=== PATIENT | female | born 1980 | race Caucasian/White ===

== ENCOUNTER → 2017-09-06 | Outpatient (CLI) | payer BC ==
--- NOTE | 2017-09-10 10:10 | MM ---
Reason for exam: screening (asymptomatic). Baseline mammogram. History: Taking hormonal contraceptives beginning at age 20. Physical Findings: Nurse did not find any significant physical abnormalities on exam. MG Screening Mammo w CAD Bilateral CC and MLO view(s) were taken. The breast tissue is heterogeneously dense. This may lower the sensitivity of mammography. Focal asymmetry right upper outer quadrant. Short term follow up recommended. These results were verbally communicated with the patient and result sheet given to the patient on 09/06/17. ASSESSMENT: Probably benign, BI-RAD 3 RECOMMENDATION: Follow-up diagnostic mammogram of the right breast in 6 months.
== END | disposition home or self-care (01) ==
LOC: RADMAMWWP 10:50
PROVIDERS: ATTEND Obstetrics & Gynecology
DX: Z12.31 Encounter for screening mammogram for malignant neoplasm of breast (principal)
CPT/HCPCS: 77067

== ENCOUNTER 2018-12-13 13:22 | Emergency (ER) | payer BC ==
[2018-12-13 14:34] LABS: Basophils % (A) 0 %; Eosinophils # (A) 0.1 k/uL (0-0.7); Eosinophils % (A) 1 %; HCT 37.7 % (34.0-46.0); HGB 12.9 gm/dL (11.4-16.0); Lymphocytes # (A) 2.4 k/uL (1.0-4.8); Lymphocytes % (A) 19 %; MCHC 34.2 g/dL (31.0-37.0); MCV 90.7 fL (80.0-100.0); Mean Platelet Volume 6.8; Monocytes # (A) 0.6 k/uL (0-1.0); Monocytes % (A) 5 %; Neutrophils # (A) 9.6 k/uL (1.3-7.7); Neutrophils % (A) 75 %; Platelet Count 346 k/uL (150-450); RBC 4.16 m/uL (3.80-5.40); RDW 14.2 % (11.5-15.5); WBC 12.9 k/uL (3.8-10.6)
[2018-12-13 14:42] LABS: INR 0.9 (<1.2); Partial Thromboplastin Time 23.5 sec (22.0-30.0); Prothrombin Time 9.6 sec (9.0-12.0)
[2018-12-13 14:50] LABS: ALT 19 U/L (9-52); AST 21 U/L (14-36); African American GFR (CKD) >90 (>60 ml/min/1.73 sqM); Albumin 4.1 g/dL (3.5-5.0); Alkaline Phosphatase 76 U/L (38-126); Anion Gap 9 mmol/L; Blood Urea Nitrogen 16 mg/dL (7-17); Calcium 9.4 mg/dL (8.4-10.2); Carbon Dioxide 25 mmol/L (22-30); Chloride 104 mmol/L (98-107); Glucose 95 mg/dL (74-99); Potassium 4.2 mmol/L (3.5-5.1); Sodium 138 mmol/L (137-145); Total Bilirubin 0.2 mg/dL (0.2-1.3); Total Protein 7.8 g/dL (6.3-8.2)
[2018-12-13 15:54] LABS: Amorphous Sediment,Urine Few /hpf; Appearance,Urine Cloudy (Clear); Bilirubin,Urine Negative (Negative); Blood,Urine Small (Negative); Color,Urine Yellow; Glucose,Urine (UA) Negative (Negative); Ketones,Urine Negative (Negative); Leukocyte Esterase,Urine Negative (Negative); Mucus,Urine Rare /hpf; Nitrite,Urine Negative (Negative); Protein,Urine Negative (Negative); RBC,Urine 2 /hpf (0-5); Specific Gravity,Urine 1.023 (1.001-1.035); Squamous Epithelial Cell,Urine 1 /hpf (0-4); Urobilinogen,Urine <2.0 mg/dL (<2.0)
[2018-12-13 16:26] LABS: HCG,Quantitative Serum >225000.0 mIU/mL
[2018-12-13 16:30] VITALS: BP 140/87; PULSE 87; RESP 16; TEMP 97.9
[2018-12-13] MEDS ORDERED: METOCLOPRAMIDE 10 MG TAB PO STA (16:49)
[2018-12-13] MEDS ORDERED: diphenhydrAMINE 50 MG CAP PO STA (16:50)
--- NOTE | 2018-12-13 17:42 | ED ---
Female Urogenital HPI - General Chief complaint: Vaginal Bleeding Stated complaint: 8 wks , Bleeding Time Seen by Provider: 12/13/18 13:52 Source: patient Mode of arrival: ambulatory Limitations: no limitations - History of Present Illness Initial comments: Patient is a 38-year-old female who is who presents emergency department with a positive test. States that for the past several week she's felt extremely nauseated with vomiting. She did take a test on Saturday and it was positive. Patient states her first ever last menstrual period was November 03. She has yet to see her [employer], Dr. Olivas. Appointment is January. She reports that as of 7:30 last night she did start having some vaginal bleeding. States that he consisted of thin bright red blood and some clots. Denies any abdominal pain. No blunt abdominal trauma. She denies any visual changes, headaches right upper quadrant pain. No lower extremity edema. Denies any she's with hypoxemia hypertension and previous . She has had 2 previous miscarriages. She denies any issues with her urination to include dysuria, hematuria or difficulty voiding. Denies any changes in her bowel movements and diarrhea, cuts patient, melanotic stools or hematochezia. No concern for sexually transmitted infections. There are no other alleviating, precipitating or modifying factors - Related Data Home Medications Medication Instructions Recorded Confirmed Ami-Wgpr-Zwqoq Acid 1 cap PO DAILY 02/11/15 12/13/18 [-U Capsule (formulary)] Previous Rx's Medication Instructions Recorded Doxylamine Succinate [Unisom] 25 mg PO HS #30 tablet 12/13/18 Metoclopramide [Reglan] 10 mg PO TID PRN #15 tab 12/13/18 Pnv No.95/Ferrous Fum/Folic AC 1 each PO DAILY #30 tablet 12/13/18 [ Multivitamin Tablet] Pyridoxine [Vitamin B-6] 50 mg PO HS #30 tablet 12/13/18 Allergies Allergy/AdvReac Type Severity Reaction Status Date / Time codeine AdvReac Unknown Verified 12/13/18 14:26 Review of Systems ROS Statement: Those systems with pertinent positive or pertinent negative responses have been documented in the HPI. ROS Other: All systems not noted in ROS Statement are negative. Past Medical History Past Medical History: No Reported History History of Any Multi-Drug Resistant Organisms: None Reported Past Surgical History: No Surgical Hx Reported Additional Past Surgical History / Comment(s): Mole removal Past Anesthesia/Blood Transfusion Reactions: No Reported Reaction Past Psychological History: No Psychological Hx Reported Smoking Status: Never smoker Past Drug Use History: None Reported - Past Family History Mother Family Medical History: No Reported History General Exam Limitations: no limitations Course Vital Signs 12/13/18 12/13/18 13:34 16:26 Temperature 98 F 97.9 F Pulse Rate 102 H 87 Respiratory 18 16 Rate Blood Pressure 129/84 140/87 O2 Sat by Pulse 99 99 Oximetry Medical Decision Making - Medical Decision Making Upon arrival the patient is placed into room 17. She is hooked up to continuous pulse ox and cardiac monitoring. I did recommend laboratory studies and a urinalysis. The patient was sent for an ultrasound of pelvis. Upon return the results are discussed the patient. She does have a mild leukocytosis of 12,900. The patient also has a beta Quant of 225,000. Some of the patient's pelvis demonstrates an intrauterine dated at 9 weeks, 0 days. There is a heart 170 bpm. Patient's blood is A+. Pelvic exam the patient which demonstrates only a trace amount of brown blood. Cervix is visualized, closed without lesions. At this time the patient will be discharged home. She needs to follow-up with Dr. Lehman as soon as possible. If she has any new or worsening symptoms she should return to the emergency room. Patient is written a prescription for vitamins, Reglan, B6 and Unisom. Instructions are provided. Patient was discharged home in stable condition - Lab Data Result diagrams: 12/13/18 14:20 12/13/18 14:20 Lab Results 12/13/18 12/13/18 12/13/18 Range/Units 14:20 14:20 14:20 WBC 12.9 H (3.8-10.6) k/uL RBC 4.16 (3.80-5.40) m/uL Hgb 12.9 (11.4-16.0) gm/dL Hct 37.7 (34.0-46.0) % MCV 90.7 (80.0-100.0) fL MCH 31.0 (25.0-35.0) pg MCHC 34.2 (31.0-37.0) g/dL RDW 14.2 (11.5-15.5) % Plt Count 346 (150-450) k/uL Neutrophils % 75 % Lymphocytes % 19 % Monocytes % 5 % Eosinophils % 1 % Basophils % 0 % Neutrophils # 9.6 H (1.3-7.7) k/uL Lymphocytes # 2.4 (1.0-4.8) k/uL Monocytes # 0.6 (0-1.0) k/uL Eosinophils # 0.1 (0-0.7) k/uL Basophils # 0.0 (0-0.2) k/uL PT 9.6 (9.0-12.0) sec INR 0.9 (<1.2) APTT 23.5 (22.0-30.0) sec Sodium 138 (137-145) mmol/L Potassium 4.2 (3.5-5.1) mmol/L Chloride 104 (98-107) mmol/L Carbon Dioxide 25 (22-30) mmol/L Anion Gap 9 mmol/L BUN 16 (7-17) mg/dL Creatinine 0.63 (0.52-1.04) mg/dL Est GFR (CKD-EPI)AfAm >90 (>60 ml/min/1.73 sqM) Est GFR (CKD-EPI)NonAf >90 (>60 ml/min/1.73 sqM) Glucose 95 (74-99) mg/dL Calcium 9.4 (8.4-10.2) mg/dL Total Bilirubin 0.2 (0.2-1.3) mg/dL AST 21 (14-36) U/L ALT 19 (9-52) U/L Alkaline Phosphatase 76 (38-126) U/L Total Protein 7.8 (6.3-8.2) g/dL Albumin 4.1 (3.5-5.0) g/dL HCG, Quant >804304.0 mIU/mL Urine Color Urine Appearance (Clear) Urine pH (5.0-8.0) Ur Specific [place] (1.001-1.035) Urine Protein (Negative) Urine Glucose (UA) (Negative) Urine Ketones (Negative) Urine Blood (Negative) Urine Nitrite (Negative) Urine Bilirubin (Negative) Urine Urobilinogen (<2.0) mg/dL Ur Leukocyte Esterase (Negative) Urine RBC (0-5) /hpf Ur Squamous Epith Cells (0-4) /hpf Amorphous Sediment (None) /hpf Urine Mucus (None) /hpf Blood Type Blood Type Recheck Bld Type Recheck Status 12/13/18 12/13/18 Range/Units 14:20 14:25 WBC (3.8-10.6) k/uL RBC (3.80-5.40) m/uL Hgb (11.4-16.0) gm/dL Hct (34.0-46.0) % MCV (80.0-100.0) fL MCH (25.0-35.0) pg MCHC (31.0-37.0) g/dL RDW (11.5-15.5) % Plt Count (150-450) k/uL Neutrophils % % Lymphocytes % % Monocytes % % Eosinophils % % Basophils % % Neutrophils # (1.3-7.7) k/uL Lymphocytes # (1.0-4.8) k/uL Monocytes # (0-1.0) k/uL Eosinophils # (0-0.7) k/uL Basophils # (0-0.2) k/uL PT (9.0-12.0) sec INR (<1.2) APTT (22.0-30.0) sec Sodium (137-145) mmol/L Potassium (3.5-5.1) mmol/L Chloride (98-107) mmol/L Carbon Dioxide (22-30) mmol/L Anion Gap mmol/L BUN (7-17) mg/dL Creatinine (0.52-1.04) mg/dL Est GFR (CKD-EPI)AfAm (>60 ml/min/1.73 sqM) Est GFR (CKD-EPI)NonAf (>60 ml/min/1.73 sqM) Glucose (74-99) mg/dL Calcium (8.4-10.2) mg/dL Total Bilirubin (0.2-1.3) mg/dL AST (14-36) U/L ALT (9-52) U/L Alkaline Phosphatase (38-126) U/L Total Protein (6.3-8.2) g/dL Albumin (3.5-5.0) g/dL HCG, Quant mIU/mL Urine Color Yellow Urine Appearance Cloudy H (Clear) Urine pH 7.0 (5.0-8.0) Ur Specific [place] 1.023 (1.001-1.035) Urine Protein Negative (Negative) Urine Glucose (UA) Negative (Negative) Urine Ketones Negative (Negative) Urine Blood Small H (Negative) Urine Nitrite Negative (Negative) Urine Bilirubin Negative (Negative) Urine Urobilinogen <2.0 (<2.0) mg/dL Ur Leukocyte Esterase Negative (Negative) Urine RBC 2 (0-5) /hpf Ur Squamous Epith Cells 1 (0-4) /hpf Amorphous Sediment Few H (None) /hpf Urine Mucus Rare H (None) /hpf Blood Type A Positive Blood Type Recheck A Pos Bld Type Recheck Status No Disposition Clinical Impression: Vaginal bleeding, Threatened Disposition: HOME SELF-CARE Condition: Stable Instructions (If sedation given, give patient instructions): Threatened Miscarriage (ED) Additional Instructions: Please call and make an appointment with Dr. Olivas. Return to the emergency room for any new or worsening symptoms. Take the B6 and Unisom at night. Take the Reglan if you've started throwing up. Prescriptions: Pnv No.95/Ferrous Fum/Folic AC [ Multivitamin Tablet] 1 each PO DAILY #30 tablet Metoclopramide [Reglan] 10 mg PO TID PRN #15 tab PRN Reason: Vomiting Doxylamine Succinate [Unisom] 25 mg PO HS #30 tablet Pyridoxine [Vitamin B-6] 50 mg PO HS #30 tablet Is patient prescribed a controlled substance at d/c from ED?: No Referrals: Clay Stallworth DO [Primary Care Provider] - 1-2 days Time of Disposition: 17:41
--- NOTE | 2018-12-13 21:51 | US ---
EXAMINATION TYPE: Transabdominal DATE OF EXAM: 12/13/2018 2:46 PM COMPARISON: NONE CLINICAL HISTORY: Pain. Bleeding on and off x 2 weeks EXAM PERFORMED: Transabdominal (TA) EXAM MEASUREMENTS: GESTATIONAL AGE / DATING Physician Established: Not established yet Dates by LMP: Patient unsure Dates by First Scan: This is 1st scan Dates by Current Scan for: (9 weeks/0 days) EDC: 07/18/2019 MATERNAL ANATOMY Uterus: 9.1 x 6.0 x 7.1cm Right Ovary: 3.4 x 1.9 x 1.6cm Left Ovary: 2.5 x 1.7 x 1.4cm Post CDS / Adnexa: wnl Presence of free fluid: no Presence of corpus luteal cyst: right ovary: 1.5 x 1.4 x 1.2cm Presence of subchorionic bleed: no GESTATION / SURVEY CRL: 2.4cm (9 weeks/0 days) Yolk Sac (normal less than 6mm): 4.4mm Heart Rate: 178 bpm Rhythm: Normal IUP: Viable IUP Date of LMP: Patient unsure Beta HcG (if available): Not available at time of exam IMPRESSION: Viable single IUP measuring 9 weeks 0 days with a heart rate of 178bpm and an estimated delivery date of 07/18/2019.
== END 2018-12-13 17:49 | disposition home or self-care (01) ==
LOC: EC 13:22
DX: O20.0 Threatened abortion (principal); Z3A.09 9 weeks gestation of pregnancy; Z88.5 Allergy status to narcotic agent
CPT/HCPCS: 36415; 76801; 80053; 81001; 84702; 85025; 85610; 85730; 86900; 86901; 99284

== ENCOUNTER 2019-06-23 04:54 | Inpatient (IN) | payer BC ==
[2019-06-23] MEDS ORDERED: OXYTOCIN 10 UNIT/ML 1 ML VIAL IM PRN (05:38)
[2019-06-23] MEDS ORDERED: LIDOCAINE 0.5% (PF) 5 MG/ML (50 ML SDV) SQ PRN (05:38)
[2019-06-23] MEDS ORDERED: METHYLERGONOVINE 0.2 MG/ML 1 ML AMP IM PRN (05:38)
[2019-06-23] MEDS ORDERED: TERBUTALINE 1 MG/ML VIAL SQ PRN (05:38)
[2019-06-23] MEDS ORDERED: CARBOPROST TROMETHAMINE 250 MCG/ML 1 ML AMP IM PRN (05:38)
[2019-06-23] MEDS: LACTATED RINGERS 1,000 ML IV SCH ×3 (05:40→22:08)
[2019-06-23] MEDS ORDERED: fentaNYL (PF) 50 MCG/ML 5 ML AMP ONE (06:25)
[2019-06-23] MEDS ORDERED: SODIUM CHLORIDE 0.9% 100 ML BAG ONE (06:25)
[2019-06-23] MEDS ORDERED: ROPIVACAINE 5MG/ML 20ML VIAL ONE (06:25)
[2019-06-23 06:35] LABS: Basophils % (A) 0 %; Eosinophils # (A) 0.1 k/uL (0-0.7); Eosinophils % (A) 0 %; HCT 37.1 % (34.0-46.0); HGB 12.1 gm/dL (11.4-16.0); Lymphocytes # (A) 2.6 k/uL (1.0-4.8); Lymphocytes % (A) 21 %; MCH 30.1 pg (25.0-35.0); MCHC 32.7 g/dL (31.0-37.0); MCV 92.3 fL (80.0-100.0); Mean Platelet Volume 8.3; Monocytes # (A) 0.7 k/uL (0-1.0); Monocytes % (A) 6 %; Neutrophils # (A) 8.6 k/uL (1.3-7.7); Neutrophils % (A) 71 %; Platelet Count 308 k/uL (150-450); RBC 4.02 m/uL (3.80-5.40); RDW 13.7 % (11.5-15.5); WBC 12.1 k/uL (3.8-10.6)
[2019-06-23] MEDS ORDERED: SIMETHICONE 80 MG CHEWABLE PO PRN (08:03)
[2019-06-23] MEDS ORDERED: ACETAMINOPHEN TAB 325 MG TAB PO PRN (08:03)
[2019-06-23] MEDS ORDERED: LANOLIN CREAM 5 GM TUBE TOPICAL PRN (08:03)
[2019-06-23] MEDS ORDERED: WITCH HAZEL 1 EACH MED..PAD TOPICAL PRN (08:03)
[2019-06-23] MEDS ORDERED: HYDROCORTISONE 2.5% RECTAL CREAM 30 GM TUBE RECTAL PRN (08:03)
[2019-06-23] MEDS ORDERED: IBUPROFEN 600 MG TAB PO PRN (08:03)
[2019-06-23] MEDS ORDERED: diphenhydrAMINE 50 MG/ML 1 ML VIAL IVP PRN ×2 (08:03)
[2019-06-23] MEDS ORDERED: diphenhydrAMINE 50 MG CAP PO PRN (08:03)
[2019-06-23] MEDS ORDERED: diphenhydrAMINE 25 MG CAP PO PRN (08:03)
[2019-06-23] MEDS ORDERED: ZOLPIDEM 5 MG TAB PO PRN (08:03)
[2019-06-23] MEDS ORDERED: BENZOCAINE/MENTHOL SPRAY 1 GM/SPRAY AEROSOL TOPICAL PRN (08:03)
[2019-06-23] MEDS ORDERED: OXYTOCIN 20 UNITS/1000 ML NS 1,000 ML IV SCH (08:15)
--- NOTE | 2019-06-23 08:46 | P.HPOB ---
History of Present Illness H&P Date: 06/23/19 Chief Complaint: Spontaneous rupture membranes and contractions 38-year-old presents at 36 weeks and 3 days with spontaneous rupture of membranes at 3:30 AM. She presented to family at 5:30 AM with clear fluid leaking. Her cervix was 37 m dilated, 80% effaced, and -2 station. She is ollie irregularly. heart tones 140 with moderate variability and reactive. Review of Systems All systems: negative Constitutional: Denies chills, Denies fever Eyes: denies blurred vision, denies pain Ears, nose, mouth and throat: Denies headache, Denies sore throat Cardiovascular: Denies chest pain, Denies shortness of breath Respiratory: Denies cough Gastrointestinal: Denies abdominal pain, Denies diarrhea, Denies nausea, Denies vomiting Genitourinary: Denies dysuria, Denies hematuria Musculoskeletal: Denies myalgias Integumentary: Denies pruritus, Denies rash Neurological: Denies numbness, Denies weakness Psychiatric: Denies anxiety, Denies depression Endocrine: Denies fatigue, Denies weight change Past Medical History Past Medical History: No Reported History Additional Past Medical History / Comment(s): Obstetric history: She's had 2 previous vaginal deliveries. This is her third and she's had care with Dr. Olivas. Blood type A+, abs negative, rubella immune, heparin is B-, GBS negative, HIV negative, RPR nonreactive. History of Any Multi-Drug Resistant Organisms: None Reported Past Surgical History: No Surgical Hx Reported Additional Past Surgical History / Comment(s): Mole removal Past Anesthesia/Blood Transfusion Reactions: No Reported Reaction Past Psychological History: No Psychological Hx Reported Smoking Status: Never smoker Past Alcohol Use History: None Reported Past Drug Use History: None Reported - Past Family History Mother Family Medical History: No Reported History Medications and Allergies Home Medications Medication Instructions Recorded Confirmed Type Nzk-Jxxz-Mruzd Acid 1 cap PO DAILY 02/11/15 12/13/18 History [-U Capsule (formulary)] Doxylamine Succinate [Unisom] 25 mg PO HS #30 tablet 12/13/18 Rx Metoclopramide [Reglan] 10 mg PO TID PRN #15 tab 12/13/18 Rx Pnv No.95/Ferrous Fum/Folic AC 1 each PO DAILY #30 tablet 12/13/18 Rx [ Multivitamin Tablet] Pyridoxine [Vitamin B-6] 50 mg PO HS #30 tablet 12/13/18 Rx Allergies Allergy/AdvReac Type Severity Reaction Status Date / Time codeine AdvReac Unknown Verified 06/23/19 05:00 Exam Osteopathic Statement: *. No significant issues noted on an osteopathic structural exam other than those noted in the History and Physical/Consult. Vital Signs Temp Pulse Resp BP Pulse Ox 06/23/19 07:55 77 16 130/70 06/23/19 07:40 98.0 F 84 16 124/60 06/23/19 05:26 98.3 F 101 H 16 135/79 97 06/23/19 05:02 98.3 F 101 H 16 135/79 97 Intake and Output 06/22/19 06/23/19 06/23/19 22:59 06:59 14:59 Other: # Voids 2 0 # Bowel Movements 1 Weight 82.554 kg Heart: Regular rate and rhythm Lungs: Clear to auscultation bilaterally Abdomen: Soft, nontender Extremities: Negative Homans sign Results Result Diagrams: 06/23/19 05:41 Abnormal Lab Results - Last 24 Hours (Table) 06/23/19 Range/Units 05:41 WBC 12.1 H (3.8-10.6) k/uL Neutrophils # 8.6 H (1.3-7.7) k/uL Assessment and Plan (1) Spontaneous rupture of membranes Current Visit: Yes Status: Acute Code(s): [id number] - SNOMED Code(s): 970720526 Plan: 1. Admit to family place 2. Epidural for pain management 3. Anticipate normal vaginal delivery
--- NOTE | 2019-06-23 08:48 | P.PROBDLV ---
Vaginal Delivery Note - . Vaginal Delivery Note: 38-year-old presents at 36 weeks and 3 days with spontaneous rupture of membranes at 3:30 AM. She presented to family at 5:30 AM with clear fluid leaking. Her cervix was 37 m dilated, 80% effaced, and -2 station. She is ollie irregularly. heart tones 140 with moderate variability and reactive. She was admitted to [facility] and given an epidural. Her cervix was completely dilated at 6:53 AM. She labored down for a little while and then pushed, delivered a viable female over intact perineum under epidural anesthesia at 7:27 AM. Head delivered OA, anterior shoulder delivered gentle downward guidance followed by posterior shoulder and rest of body. Nose and mouth bulb suctioned, cord clamped and cut, placed on mother's abdomen. Apgars 8, 8, weight 6 lbs. 1 oz. Placenta delivered spontaneously, intact with three-vessel cord at 7:30 AM. Vagina, cervix, perineum inspected. No lacerations noted. Estimated blood loss 200 mL. Mother and baby in stable condition.
[2019-06-23] MEDS: SENNOSIDES-DOCUSATE SODIUM 1 EACH TAB PO SCH (22:07)
[2019-06-24 07:05] LABS: Basophils % (A) 0 %; Eosinophils # (A) 0.1 k/uL (0-0.7); Eosinophils % (A) 1 %; HCT 32.9 % (34.0-46.0); HGB 10.8 gm/dL (11.4-16.0); Lymphocytes # (A) 2.4 k/uL (1.0-4.8); Lymphocytes % (A) 22 %; MCHC 32.8 g/dL (31.0-37.0); MCV 94.6 fL (80.0-100.0); Monocytes # (A) 0.5 k/uL (0-1.0); Monocytes % (A) 5 %; Neutrophils # (A) 8.1 k/uL (1.3-7.7); Neutrophils % (A) 71 %; Platelet Count 248 k/uL (150-450); RBC 3.47 m/uL (3.80-5.40); WBC 11.3 k/uL (3.8-10.6)
[2019-06-24 08:47] VITALS: BP 115/71; PULSE 89; RESP 18; TEMP 98.1
--- NOTE | 2019-06-24 08:54 | P.DS ---
Providers Date of admission: 06/23/19 05:16 Expected date of discharge: 06/24/19 Attending physician: Sita Olivas Primary care physician: Stated None Hospital Course: This is a 38-year-old female 3 para 2 at 36-3/7 weeks who presented with active labor. She delivered vaginally a viable female infant with scores of 8 at 1 minute and 8 at 5 minutes and weight of 6 lbs. 1 oz. Her course has been uncomplicated. Lochia is decreasing. Her pain is well-controlled. She is working on breast-feeding. Vital signs are stable. Abdomen is soft with fundus firm and nontender. Extremities show negative Stacey ns. Impression is status post vaginal delivery day #1. Plan is to discharge home today. Routine instructions are given. She will be given a prescription for a breast pump. She denies the need for any pain medication. She is advised to call the office if she has any further questions or concerns prior to her appointment time. Procedures: Spontaneous vaginal delivery of a viable female on 06/23/2019 Patient Condition at Discharge: Stable Plan - Discharge Summary New Discharge Prescriptions: No Action Rka-Anif-Marei Acid [-U Capsule (formulary)] 1 cap PO DAILY Pnv No.95/Ferrous Fum/Folic AC [ Multivitamin Tablet] 1 each PO DAILY #30 tablet Metoclopramide [Reglan] 10 mg PO TID PRN #15 tab PRN Reason: Vomiting Doxylamine Succinate [Unisom] 25 mg PO HS #30 tablet Pyridoxine [Vitamin B-6] 50 mg PO HS #30 tablet Discharge Medication List Snf-Woxy-Kccwu Acid [-U Capsule (formulary)] 1 cap PO DAILY 02/11/15 [History] Doxylamine Succinate [Unisom] 25 mg PO HS #30 tablet 12/13/18 [Rx] Metoclopramide [Reglan] 10 mg PO TID PRN #15 tab 12/13/18 [Rx] Pnv No.95/Ferrous Fum/Folic AC [ Multivitamin Tablet] 1 each PO DAILY #30 tablet 12/13/18 [Rx] Pyridoxine [Vitamin B-6] 50 mg PO HS #30 tablet 12/13/18 [Rx] Follow up Appointment(s)/Referral(s): Sita Olivas DO [Doctor of Osteopathic Medicine] - 1 Week Activity/Diet/Wound Care/Special Instructions: Instructions 1. Do not begin any exercise program for 3 weeks. 2. Do not resume sexual relations for 3 weeks or longer if uncomfortable. 3. You may take tub baths or showers at any time. 4. You may use tampons if desired after 3 weeks. 5. Keep the area of episiotomy (stitches) clean and dry. 6. If you are not nursing, wear a good fitting, supportive bra during the day and limit fluid intake for at least 1 week to prevent breast engorgement. 7. Call the office, [phone], within the next week to make appointment for your 6 week checkup if it has not already been made. 8. Report any of the following occurrences to the doctor promptly: a. Heavy, excessive bleeding b. Chills, fever c. Burning or frequency of urination d. Pain or redness and breasts if nursing e. Increasing pain or swelling in episiotomy (stitches). In addition to the above instructions, the following additional should be followed: 1. No heavy lifting or straining (exercising) until after 6 week checkup. 2. Keep abdominal incision clean and dry: You may wear a dressing if more comfortable. 3. Make office appointment for 10 days after going home or as instructed by her doctor. Discharge Disposition: HOME SELF-CARE
[2019-06-24] MEDS: SENNOSIDES-DOCUSATE SODIUM 1 EACH TAB PO SCH (10:42)
--- NOTE | 2019-06-26 21:50 | P.MSEPDOC ---
Presenting Problems - Arrival Data Date of Arrival on Unit: 06/23/19 Time of Arrival on Unit: 05:16 Mode of Transport: Wheelchair - Complaint OB-Reason for Admission/Chief Complaint: Possible Onset of Labor, Rule Out SROM Comment: SROM 0330 Medical History - Information : 3 Para: 2 Term: 2 : 0 Abortions: Spontaneous or Elective: 0 Number of Living Children: 2 - Gestational Age Gestational Age by MARIA LUISA (wks/days): 36 Weeks and 3 Days Review of Systems - Review of Systems Constitutional: No problems Breast: No problems ENT: No problems Cardiovascular: No problems Respiratory: No problems Gastrointestinal: No problems Genitourinary: No problems Musculoskeletal: No problems Neurological: No problems Skin: No problems Vital Signs - Temperature Temperature: 98.1 F Temperature Source: Oral - Pulse Right Sitting Pulse Rate: 89 Pulse Assessment Method: Automatic Cuff - Respirations Respiratory Rate: 18 Oxygen Delivery Method: Room Air - Blood Pressure Right Arm Sitting Blood Pressure: 115/71 Blood Pressure Mean: 85 Blood Pressure Source: Automatic Cuff Medical Screen Scoring (Pre) - Cervical Exam Dilation: 1-3 cm = 1 Effacement: More than 50% = 2 Membranes: Ruptured = 3 - Uterine Contractions Frequency: > 5 minutes apart = 1 - Maternal Vital Signs Maternal Temperature: N/A Maternal Blood Pressure: N/A Signs of Preeclampsia: N/A Maternal Respirations: N/A - Maternal Trauma Maternal Trauma: N/A - Assessment - Baby A Baseline FHR: 135 Heart Rate - NICHD Category: Category I (Normal) = 0 NST: Reactive - Total Score - Baby A Total Score - Baby A: 7 - Total Score - Baby B Total Score - Baby B: 7 - Total Score - Baby C Total Score - Baby C: 7 - Level of Risk - Baby A Level of Risk - Baby A: Medium (6-9) - Level of Risk - Baby B Level of Risk - Baby B: Medium (6-9) - Level of Risk - Baby C Level of Risk - Baby C: Medium (6-9) Physician Notification (Pre) - Physician Notified Physician Notified Date: 06/23/19 Physician Notified Time: 05:38 New Order Received: Yes Disposition - Disposition OB Disposition: Admit, LDRP Suite Discharge Date: 06/24/19 Discharge Time: 13:44 I agree with the RN Medical Screening Exam: Yes Risk & Benefit of care provided described in d/c instruction: Yes Diagnosis: ENCOUNTER FOR FULL-TERM UNCOMPLICATED DELIVERY
== END 2019-06-24 13:49 | disposition home or self-care (01) | DRG 807 ==
LOC: FBPOP 04:54 → 4FBP 05:16
PROVIDERS: ADMIT Obstetrics & Gynecology; ATTEND Obstetrics & Gynecology
PROC: 10E0XZZ Delivery of Products of Conception, External Approach (ICD-10-PCS; principal; 2019-06-23)
DX: O80 Encounter for full-term uncomplicated delivery (principal); Z37.0 Single live birth; Z3A.36 36 weeks gestation of pregnancy
CPT/HCPCS: 59025; 84112; 85025; 86850; 86900; 86901; 99213

== ENCOUNTER 2019-08-08 12:41 | Emergency (ER) | payer BC ==
[2019-08-08 12:46] VITALS: RESP 18; TEMP 98.1
[2019-08-08] MEDS ORDERED: ONDANSETRON 4 MG/2 ML VIAL IVP STA (12:59)
[2019-08-08] MEDS ORDERED: SODIUM CHLORIDE 0.9% 1,000 ML IV STA (12:59)
[2019-08-08] MEDS ORDERED: KETOROLAC 30 MG/ML 1 ML VIAL IVP STA (12:59)
--- NOTE | 2019-08-08 13:02 | ED ---
Abdominal Pain HPI - General Chief Complaint: Abdominal Pain Stated Complaint: flank pain Time Seen by Provider: 08/08/19 12:48 Source: patient Mode of arrival: ambulatory Limitations: no limitations - History of Present Illness Initial Comments: Patient is a 39-year-old female presenting to the emergency Department with complaints of right-sided abdominal pain started yesterday. Patient states she had a sudden right-sided pain yesterday that lasted for about 40 minutes. Patient had a video conference with her PCP and she did do a urine sample which showed no signs of infection. Patient states she felt better for the rest of the day and woke up this morning with again a sharp pain in the right side of her abdomen. She states it radiates from her right flank area towards the right side of her abdomen. She admits to nausea secondary to the pain. No vomiting, no fevers. She denies any previous abdominal surgeries. She recently had a vag inal delivery in June, no complications. Patient is currently breast-feeding. He denies any dysuria, vaginal discharge. She has no other complaints. Upon arrival to the ER, her vital signs are stable, afebrile. - Related Data Home Medications Medication Instructions Recorded Confirmed Kop-Lide-Jgect Acid 1 cap PO DAILY 02/11/15 12/13/18 [-U Capsule (formulary)] Previous Rx's Medication Instructions Recorded Doxylamine Succinate [Unisom] 25 mg PO HS #30 tablet 12/13/18 Metoclopramide [Reglan] 10 mg PO TID PRN #15 tab 12/13/18 Pnv No.95/Ferrous Fum/Folic AC 1 each PO DAILY #30 tablet 12/13/18 [ Multivitamin Tablet] Pyridoxine [Vitamin B-6] 50 mg PO HS #30 tablet 12/13/18 Cephalexin [Keflex] 500 mg PO BID 5 Days #10 cap 08/08/19 Ketorolac [Toradol] 10 mg PO Q8HR #10 tab 08/08/19 Ondansetron Odt [Zofran Odt] 4 mg PO Q8HR PRN #10 tab 08/08/19 Tamsulosin [Flomax] 0.4 mg PO DAILY #7 cap 08/08/19 Allergies Allergy/AdvReac Type Severity Reaction Status Date / Time codeine AdvReac Unknown Verified 04/25/20 12:46 Review of Systems ROS Statement: Those systems with pertinent positive or pertinent negative responses have been documented in the HPI. ROS Other: All systems not noted in ROS Statement are negative. Past Medical History Past Medical History: No Reported History Additional Past Medical History / Comment(s): Obstetric history: She's had 2 previous vaginal deliveries. This is her third and she's had care with Dr. Olivas. Blood type A+, abs negative, rubella immune, heparin is B- , GBS negative, HIV negative, RPR nonreactive. History of Any Multi-Drug Resistant Organisms: None Reported Past Surgical History: No Surgical Hx Reported Additional Past Surgical History / Comment(s): Mole removal Past Anesthesia/Blood Transfusion Reactions: No Reported Reaction Past Psychological History: No Psychological Hx Reported Smoking Status: Never smoker Past Alcohol Use History: None Reported Past Drug Use History: None Reported - Past Family History Mother Family Medical History: No Reported History General Exam - General Exam Comments Initial Comments: GENERAL: Well-appearing, well-nourished and in no acute distress. HEAD: Atraumatic, normocephalic. EYES: Pupils equal round and reactive to light, extraocular movements intact, sclera anicteric, conjunctiva are normal. ENT: TMs normal, nares patent, oropharynx clear without exudates. Moist mucous membranes. NECK: Normal range of motion, supple without lymphadenopathy or JVD. LUNGS: Breath sounds clear to auscultation bilaterally and equal. No wheezes rales or rhonchi. HEART: Regular rate and rhythm without murmurs, rubs or gallops. ABDOMEN: Mild right flank pain, right sided abdominal pain. No lower quadrant pain. Soft, normoactive bowel sounds. No guarding, no rebound. No masses appreciated. : Deferred EXTREMITIES: Normal range of motion, no pitting or edema. No clubbing or cyanosis. NEUROLOGICAL: Normal speech, normal gait. PSYCH: Normal mood, normal affect. SKIN: Warm, Dry, normal turgor, no rashes or lesions noted. Limitations: no limitations Course Vital Signs 08/08/19 08/08/19 12:42 14:57 Temperature 98.1 F Pulse Rate 78 88 Respiratory 18 18 Rate Blood Pressure 159/93 123/73 O2 Sat by Pulse 98 100 Oximetry Medical Decision Making - Medical Decision Making Patient is a 39-year-old female presenting with right flank pain 2 days. He since vitals are stable. Patient has no history of kidney stones. She had a recent vaginal delivery and June, no complications. Lab work reveals mild dehydration, no other abnormal findings. Urine shows small amount of blood, small amount of bacteria. Urine hCG is not detected. CT of the abdomen shows a 4 mm stone in the distal right ureter, another 5 mm nonobstructive right lower pole renal calculus. Patient was given fluids, Toradol, Zofran. She reports improvement in her symptoms. I discussed these findings with the patient. Patient will be started on Keflex for mild bacteremia, as well as Toradol and Flomax. She is stable for discharge. Patient be given referral to urology. Patient is in agreement with this plan of care. Return parameters were discussed with the patient and she verbalized understanding. Case discussed with Dr. Ag. - Lab Data Result diagrams: 08/08/19 13:16 08/08/19 13:16 Lab Results 08/08/19 08/08/19 08/08/19 Range/Units 13:16 13:16 13:26 WBC 8.9 (3.8-10.6) k/uL RBC 4.52 (3.80-5.40) m/uL Hgb 13.6 (11.4-16.0) gm/dL Hct 42.1 (34.0-46.0) % MCV 93.2 (80.0-100.0) fL MCH 30.2 (25.0-35.0) pg MCHC 32.4 (31.0-37.0) g/dL RDW 12.8 (11.5-15.5) % Plt Count 292 (150-450) k/uL Neutrophils % 60 % Lymphocytes % 31 % Monocytes % 6 % Eosinophils % 1 % Basophils % 0 % Neutrophils # 5.4 (1.3-7.7) k/uL Lymphocytes # 2.8 (1.0-4.8) k/uL Monocytes # 0.5 (0-1.0) k/uL Eosinophils # 0.1 (0-0.7) k/uL Basophils # 0.0 (0-0.2) k/uL Sodium 139 (137-145) mmol/L Potassium 4.8 (3.5-5.1) mmol/L Chloride 104 (98-107) mmol/L Carbon Dioxide 28 (22-30) mmol/L Anion Gap 7 mmol/L BUN 21 H (7-17) mg/dL Creatinine 0.77 (0.52-1.04) mg/dL Est GFR (CKD-EPI)AfAm >90 (>60 ml/min/1.73 sqM) Est GFR (CKD-EPI)NonAf >90 (>60 ml/min/1.73 sqM) Glucose 103 H (74-99) mg/dL Calcium 9.5 (8.4-10.2) mg/dL Total Bilirubin 0.5 (0.2-1.3) mg/dL AST 18 (14-36) U/L ALT 11 (4-34) U/L Alkaline Phosphatase 133 H (38-126) U/L Total Protein 8.2 (6.3-8.2) g/dL Albumin 4.4 (3.5-5.0) g/dL Lipase 54 (23-300) U/L Urine Color Yellow Urine Appearance Cloudy H (Clear) Urine pH 5.0 (5.0-8.0) Ur Specific [place] 1.023 (1.001-1.035) Urine Protein Trace H (Negative) Urine Glucose (UA) Negative (Negative) Urine Ketones Negative (Negative) Urine Blood Small H (Negative) Urine Nitrite Negative (Negative) Urine Bilirubin Negative (Negative) Urine Urobilinogen <2.0 (<2.0) mg/dL Ur Leukocyte Esterase Moderate H (Negative) Urine RBC 16 H (0-5) /hpf Urine WBC 12 H (0-5) /hpf Ur Squamous Epith Cells 7 H (0-4) /hpf Urine Bacteria Rare H (None) /hpf Hyaline Casts 1 (0-2) /lpf Urine Mucus Occasional H (None) /hpf Urine HCG, Qual (Not Detectd) 08/08/19 Range/Units 13:26 WBC (3.8-10.6) k/uL RBC (3.80-5.40) m/uL Hgb (11.4-16.0) gm/dL Hct (34.0-46.0) % MCV (80.0-100.0) fL MCH (25.0-35.0) pg MCHC (31.0-37.0) g/dL RDW (11.5-15.5) % Plt Count (150-450) k/uL Neutrophils % % Lymphocytes % % Monocytes % % Eosinophils % % Basophils % % Neutrophils # (1.3-7.7) k/uL Lymphocytes # (1.0-4.8) k/uL Monocytes # (0-1.0) k/uL Eosinophils # (0-0.7) k/uL Basophils # (0-0.2) k/uL Sodium (137-145) mmol/L Potassium (3.5-5.1) mmol/L Chloride (98-107) mmol/L Carbon Dioxide (22-30) mmol/L Anion Gap mmol/L BUN (7-17) mg/dL Creatinine (0.52-1.04) mg/dL Est GFR (CKD-EPI)AfAm (>60 ml/min/1.73 sqM) Est GFR (CKD-EPI)NonAf (>60 ml/min/1.73 sqM) Glucose (74-99) mg/dL Calcium (8.4-10.2) mg/dL Total Bilirubin (0.2-1.3) mg/dL AST (14-36) U/L ALT (4-34) U/L Alkaline Phosphatase (38-126) U/L Total Protein (6.3-8.2) g/dL Albumin (3.5-5.0) g/dL Lipase (23-300) U/L Urine Color Urine Appearance (Clear) Urine pH (5.0-8.0) Ur Specific [place] (1.001-1.035) Urine Protein (Negative) Urine Glucose (UA) (Negative) Urine Ketones (Negative) Urine Blood (Negative) Urine Nitrite (Negative) Urine Bilirubin (Negative) Urine Urobilinogen (<2.0) mg/dL Ur Leukocyte Esterase (Negative) Urine RBC (0-5) /hpf Urine WBC (0-5) /hpf Ur Squamous Epith Cells (0-4) /hpf Urine Bacteria (None) /hpf Hyaline Casts (0-2) /lpf Urine Mucus (None) /hpf Urine HCG, Qual Not Detected (Not Detectd) Disposition Clinical Impression: Right distal ureteral calculus, Right flank pain, UTI (urinary tract infection) Disposition: HOME SELF-CARE Condition: Stable Instructions (If sedation given, give patient instructions): Kidney Stones (ED) Additional Instructions: Please return to the Emergency Department if symptoms worsen or any other concerns. Take medications as prescribed. Medications include antibiotic, anti-inflammatory, Flomax, Zofran as needed for nausea. Follow-up with PCP and/or urology. Prescriptions: Tamsulosin [Flomax] 0.4 mg PO DAILY #7 cap Cephalexin [Keflex] 500 mg PO BID 5 Days #10 cap Ketorolac [Toradol] 10 mg PO Q8HR #10 tab Ondansetron Odt [Zofran Odt] 4 mg PO Q8HR PRN #10 tab PRN Reason: Nausea Is patient prescribed a controlled substance at d/c from ED?: No Referrals: Clay Stallworth DO [Primary Care Provider] - 1-2 days Malcom Velázquez MD [STAFF PHYSICIAN] - 1-2 days
[2019-08-08 13:37] LABS: Appearance,Urine Cloudy (Clear); Bacteria,Urine Rare /hpf; Bilirubin,Urine Negative (Negative); Blood,Urine Small (Negative); Color,Urine Yellow; Glucose,Urine (UA) Negative (Negative); Hyaline Casts,Urine 1 /lpf (0-2); Ketones,Urine Negative (Negative); Leukocyte Esterase,Urine Moderate (Negative); Mucus,Urine Occasional /hpf; Nitrite,Urine Negative (Negative); Protein,Urine Trace (Negative); RBC,Urine 16 /hpf (0-5); Specific Gravity,Urine 1.023 (1.001-1.035); Squamous Epithelial Cell,Urine 7 /hpf (0-4); Urobilinogen,Urine <2.0 mg/dL (<2.0); WBC,Urine 12 /hpf (0-5)
[2019-08-08 13:49] LABS: Basophils % (A) 0 %; Eosinophils # (A) 0.1 k/uL (0-0.7); Eosinophils % (A) 1 %; HCT 42.1 % (34.0-46.0); HGB 13.6 gm/dL (11.4-16.0); Lymphocytes # (A) 2.8 k/uL (1.0-4.8); Lymphocytes % (A) 31 %; MCH 30.2 pg (25.0-35.0); MCHC 32.4 g/dL (31.0-37.0); MCV 93.2 fL (80.0-100.0); Mean Platelet Volume 7.3; Monocytes # (A) 0.5 k/uL (0-1.0); Monocytes % (A) 6 %; Neutrophils # (A) 5.4 k/uL (1.3-7.7); Neutrophils % (A) 60 %; Platelet Count 292 k/uL (150-450); RBC 4.52 m/uL (3.80-5.40); RDW 12.8 % (11.5-15.5); WBC 8.9 k/uL (3.8-10.6)
[2019-08-08 14:00] LABS: ALT 11 U/L (4-34); AST 18 U/L (14-36); African American GFR (CKD) >90 (>60 ml/min/1.73 sqM); Albumin 4.4 g/dL (3.5-5.0); Alkaline Phosphatase 133 U/L (38-126); Anion Gap 7 mmol/L; Blood Urea Nitrogen 21 mg/dL (7-17); Calcium 9.5 mg/dL (8.4-10.2); Carbon Dioxide 28 mmol/L (22-30); Chloride 104 mmol/L (98-107); Glucose 103 mg/dL (74-99); Non-African American GFR(CKD) >90 (>60 ml/min/1.73 sqM); Potassium 4.8 mmol/L (3.5-5.1); Sodium 139 mmol/L (137-145); Total Bilirubin 0.5 mg/dL (0.2-1.3); Total Protein 8.2 g/dL (6.3-8.2)
--- NOTE | 2019-08-08 14:25 | CT ---
EXAMINATION TYPE: CT abdomen pelvis wo con DATE OF EXAM: 08/08/2019 COMPARISON: None HISTORY: 39-year-old female right flank pain CT DLP: 508.5 mGycm. Automated exposure control for dose reduction was used. TECHNIQUE: Contiguous axial scanning of the abdomen and pelvis without IV contrast. Coronal and sagit geo reconstructions performed. FINDINGS: LUNG BASES: No significant abnormality is appreciated. LIVER/GB: Liver borderline enlarged at 17.8 cm. Gallbladder shows no abnormal distention. PANCREAS: No significant abnormality is seen by noncontrast CT. SPLEEN: No significant abnormality is seen by noncontrast CT. ADRENALS: No significant abnormality is seen by noncontrast CT. KIDNEYS: 5 mm nonobstructive right lower pole renal calculus. Moderate right-sided hydronephrosis and hydroureter with a 4 mm calculus at the distal right ureter just prior to the UVJ. BOWEL: No dilated small bowel, free fluid, or free air. Scattered mild stool. No pericolonic inflamm atory change. LYMPH NODES: No mesenteric or retroperitoneal lymphadenopathy. No pelvic lymphadenopathy. PELVIS: Bladder nondistended. Uterus anteverted. Both ovaries are visualized. Pelvic phleboliths. No abnormal fluid collection in the pelvis. BONES: No osseous destructive process. IMPRESSION: 1. A 4 mm calculus at the distal right ureter with moderate obstructive uropathy. 2. Additional 5 mm nonobstructive right lower pole renal calculus.
[2019-08-08 14:59] VITALS: BP 123/73; PULSE 88
== END 2019-08-08 14:57 | disposition home or self-care (01) ==
LOC: EC 12:41
DX: N39.0 Urinary tract infection, site not specified (principal); N20.2 Calculus of kidney with calculus of ureter; E86.0 Dehydration; Z88.5 Allergy status to narcotic agent
CPT/HCPCS: 99284; 96374; 96375; 96361; 36415; 80053; 83690; 85025; 81001; 81025; 87086; 74176; J2405; J1885

== ENCOUNTER → 2019-08-18 | Outpatient (CLI) | payer BC ==
--- NOTE | 2019-08-18 11:43 | US ---
EXAMINATION TYPE: US kidneys/renal and bladder DATE OF EXAM: 08/18/2019 COMPARISON: None CLINICAL HISTORY: R31.9 Hematuria. Hx right side renal stone. Patient has no pain. EXAM MEASUREMENTS: Right Kidney: 10.9 x 4.8 x 4.7 cm Left Kidney: 10.2 x 4.3 x 4.7 cm Right Kidney: No hydronephrosis or masses seen Left Kidney: No hydronephrosis or masses seen Bladder: distended, anechoic, wnl Bilateral Jets seen There is no evidence for hydronephrosis at this point in time. No nephrolithiasis is seen. No rhonda s are identified. The urinary bladder is anechoic. Bilateral ureteral jets are seen. IMPRESSION: No distinct abnormality appreciated.
== END | disposition home or self-care (01) ==
LOC: RADUSWWP 10:43
PROVIDERS: ATTEND Family Medicine
DX: R31.9 Hematuria, unspecified (principal)
CPT/HCPCS: 76770

== ENCOUNTER → 2020-12-15 | Outpatient (CLI) | payer BC ==
--- NOTE | 2020-12-16 13:12 | MM ---
Reason for exam: screening (asymptomatic). Last mammogram was performed 3 years and 3 months ago. History: Taking hormonal contraceptives beginning at age 20. Physical Findings: A clinical breast exam by your physician is recommended on an annual basis and results should be correlated with mammographic findings. MG Screening Mammo w CAD Bilateral CC and MLO view(s) were taken. Prior study comparison: September 06, 2017, bilateral MG screening mammo w CAD. There are scattered fibroglandular densities. There is no discrete abnormality. No significant changes when compared with prior studies. ASSESSMENT: Negative, BI-RAD 1 RECOMMENDATION: Routine screening mammogram of both breasts in 1 year.
== END | disposition home or self-care (01) ==
LOC: RADMAMWWP 09:30
PROVIDERS: ATTEND Obstetrics & Gynecology
DX: Z12.31 Encounter for screening mammogram for malignant neoplasm of breast (principal); Z79.3 Long term (current) use of hormonal contraceptives
CPT/HCPCS: 77067

== ENCOUNTER 2024-08-14 13:24 | Emergency (ER) | payer BC, OTHER ==
[2024-08-14 13:27] VITALS: RESP 18; TEMP 98.3
--- NOTE | 2024-08-14 13:45 | ED ---
Abdominal Pain HPI - General Chief Complaint: Abdominal Pain Stated Complaint: R side pain Time Seen by Provider: 08/14/24 13:45 Source: patient, RN notes reviewed Mode of arrival: ambulatory Limitations: no limitations - History of Present Illness Initial Comments: 44-year-old female presented the ER for evaluation of right-sided abdominal di scomfort. She states pain started yesterday and has progressively worsened throughout the night. She reports pain to lower abdomen with mild radiation to right flank. Admits to history of kidney stones approximately 4 years ago. Patient does have a strong urgency to urinate but denies any dysuria or hematuria. Patient also admits to nausea given the pain. Denies vomiting, diarrhea/constipation, abnormal vaginal bleeding or discharge. Patient has tried taking [id number]-lft-ozprcim Tylenol for pain control without relief. Denies any fevers or chills. No other complaints. - Related Data Home Medications Medication Instructions Recorded Confirmed Wtl-Yzer-Ohxqi Acid 1 cap PO DAILY 02/11/15 12/13/18 [-U Capsule (formulary)] Previous Rx's Medication Instructions Recorded Doxylamine Succinate [Unisom] 25 mg PO HS #30 tablet 12/13/18 Metoclopramide [Reglan] 10 mg PO TID PRN #15 tab 12/13/18 Pnv No.95/Ferrous Fum/Folic AC 1 each PO DAILY #30 tablet 12/13/18 [ Multivitamin Tablet] Pyridoxine [Vitamin B-6] 50 mg PO HS #30 tablet 12/13/18 Cephalexin [Keflex] 500 mg PO BID 5 Days #10 cap 08/08/19 Ketorolac [Toradol] 10 mg PO Q8HR #10 tab 08/08/19 Ondansetron Odt [Zofran Odt] 4 mg PO Q8HR PRN #10 tab 08/08/19 Tamsulosin [Flomax] 0.4 mg PO DAILY #7 cap 08/08/19 HYDROcodone/APAP 5-325MG [[place] 5] 1 each PO Q6HR PRN #12 tab 08/14/24 Ibuprofen [Motrin] 800 mg PO Q6HR #30 tab 08/14/24 Ondansetron Odt [Zofran Odt] 4 mg PO Q8HR PRN #10 tab 08/14/24 Tamsulosin [Flomax] 0.4 mg PO DAILY #7 cap 08/14/24 Allergies Allergy/AdvReac Type Severity Reaction Status Date / Time codeine AdvReac Unknown Verified 08/08/19 12:46 Review of Systems ROS Statement: Those systems with pertinent positive or pertinent negative responses have been documented in the HPI. ROS Other: All systems not noted in ROS Statement are negative. Past Medical History Past Medical History: No Reported History Additional Past Medical History / Comment(s): Obstetric history: She's had 2 previous vaginal deliveries. This is her third and she's had care with Dr. Olivas. Blood type A+, abs negative, rubella immune, heparin is B- , GBS negative, HIV negative, RPR nonreactive. History of Any Multi-Drug Resistant Organisms: None Reported Past Surgical History: No Surgical Hx Reported Additional Past Surgical History / Comment(s): Mole removal Past Anesthesia/Blood Transfusion Reactions: No Reported Reaction Past Psychological History: No Psychological Hx Reported Smoking Status: Never smoker Past Alcohol Use History: None Reported Past Drug Use History: None Reported - Past Family History Mother Family Medical History: No Reported History General Exam Limitations: no limitations General appearance: alert, in no apparent distress Respiratory exam: Present: normal lung sounds bilaterally. Absent: respiratory distress, wheezes, rales, rhonchi, stridor Cardiovascular Exam: Present: regular rate, normal rhythm, normal heart sounds. Absent: systolic murmur, diastolic murmur, rubs, gallop, clicks GI/Abdominal exam: Present: soft, tenderness (RLQ), normal bowel sounds Back exam: Present: CVA tenderness (R) Neurological exam: Present: alert, oriented X3, CN II-XII intact Skin exam: Present: warm, dry, intact, normal color. Absent: rash Course Vital Signs 08/14/24 08/14/24 08/14/24 13:25 14:26 15:55 Temperature 98.3 F Pulse Rate 99 68 77 Respiratory 18 18 18 Rate Blood Pressure 109/76 152/90 129/95 O2 Sat by Pulse 99 95 97 Oximetry Medical Decision Making - Medical Decision Making Was pt. sent in by a medical professional or institution (, PA, FARM EQUIPMENT TECHNICIAN, urgent care, hospital, or skilled nursing...) When possible be specific @ -No Did you speak to anyone other than the patient for history (EMS, parent, family, police, friend...)? What history was obtained from this source @ -No Did you review nursing and triage notes (agree or disagree)? Why? @ -I reviewed and agree with nursing and triage notes Were old charts reviewed (outside hosp., previous admission, EMS record, old EKG, old radiological studies, urgent care reports/EKG's, skilled nursing records)? Report findings @ -No old charts were reviewed Differential Diagnosis (chest pain, altered mental status, abdominal pain women, abdominal pain men, vaginal bleeding, weakness, fever, dyspnea, syncope, headache, dizziness, GI bleed, back pain, seizure, CVA, palpatations, mental health, musculoskeletal)? @ -Differential Abdominal Pain Women:Appendicitis, Cholecystitis, diverticulosis, ischemic bowel, pancreatitis, hepatitis, UTI, gastroenteritis, AAA, incarcerated hernia, bowel obstruction, constipation, inflammatory bowel, hepatitis, peptic ulcer disease, splenic infarction, perforated viscus, vulvitis, ovarian torsion, PID, kidney stone, placenta abruption, this is not meant to be an all-inclusive list EKG interpreted by me (3pts min.). @ -None done X-rays interpreted by me (1pt min.). @ -None done CT interpreted by me (1pt min.). @ -CT abdomen pelvis showing mild right-sided hydroureteronephrosis with an obstructing 6 mm calculus at the UVJ. U/S interpreted by me (1pt. min.). @ -None done What testing was considered but not performed or refused? (CT, X-rays, U/S, labs)? Why? @ -None What meds were considered but not given or refused? Why? @ -None Did you discuss the management of the patient with other professionals (professionals i.e. , PA, FARM EQUIPMENT TECHNICIAN, lab, RT, psych nurse, 7th grade social studies teacher, marketing communications assistant, teacher, hospital security officer, pillowcase cutter)? Give summary @ -No Was smoking cessation discussed for >3mins.? @ -No Was critical care preformed (if so, how long)? @ -No Were there social determinants of health that impacted care today? How? (Homelessness, low income, unemployed, alcoholism, drug addiction, transportation, low edu. Level, literacy, decrease access to med. care, longterm, rehab)? @ -No Was there de-escalation of care discussed even if they declined (Discuss DNR or withdrawal of care, Hospice)? DNR status @ -No What co-morbidities impacted this encounter? (DM, HTN, Smoking, COPD, CAD, Cancer, CVA, ARF, Chemo, Hep., AIDS, mental health diagnosis, sleep apnea, morbid obesity)? @ -Hx kidney stones Was patient admitted / discharged? Hospital course, mention meds given and route, prescriptions, significant lab abnormalities, going to OR and other pertinent info. @ -Discharged. 44-year-old female presented the ER for evaluation of right lower quadrant abdominal pain. Upon arrival, vitals within acceptable limits. Patient is tearful on exam but no signs of acute respiratory distress. Abdominal exam remarkable for right lower quadrant abdominal tenderness and righ t CVA tenderness. There is no rebound tenderness or guarding. Laboratory studies, urinalysis and CT abdomen pelvis will be obtained, patient agreeable. Laboratory studies show leukocytosis of 11.2 with no left shift. CMP unimpressive. Lactic 1.3. GFR greater than 90, creatinine 0.72. Urinalysis is hemorrhagic with large blood and greater than 182 RBCs concerning of obstructing renal calculus, no bacteria. Urine will be sent for culture. CT abd and pelvis showing right-sided hydroureteronephrosis with obstructing 6 mm calculus at the UVJ. Additional nonobstructive right renal calculus. Patient received symptomatic treatment in the ER with IV fluids, Zofran, Dilaudid, Toradol, Reglan and Tylenol with improvement. Upon reevaluation, patient resting comfortably in exam room no signs of acute distress. Results discussed with patient, all questions answered. As pain is controlled with patient's ability to follow-up closely with urology I believe she is stable for discharge with close outpatient follow-up. Prescription of [place], ibuprofen, Zofran and Flomax provided. I advised her to follow-up closely with urology, referral given. Patient discharged with urinary strainer. Return parameters discussed. Patient discharged stable condition. Patient verbally expressed understanding agreement with care plan. Case discussed with ED attending, Dr. Pierce. Undiagnosed new problem with uncertain prognosis? @ -No Drug Therapy requiring intensive monitoring for toxicity (Heparin, Nitro, Insulin, Cardizem)? @ -No Were any procedures done? @ -No Diagnosis/symptom? @ -Hydroureteronephrosis secondary to obstructing calculus Acute, or Chronic, or Acute on Chronic? @ -Acute Uncomplicated (without systemic symptoms) or Complicated (systemic symptoms)? @ -Uncomplicated Side effects of treatment? @ -No Exacerbation, Progression, or Severe Exacerbation? @ -No Poses a threat to life or bodily function? How? (Chest pain, USA, VT, pneumonia, PE, COPD, DKA, ARF, appy, cholecystitis, CVA, Diverticulitis, Homicidal, Suicidal, threat to staff... and all critical care pts) @ -Low at this time - Lab Data Result diagrams: 08/14/24 14:09 08/14/24 14:09 Lab Results 08/14/24 08/14/24 08/14/24 Range/Units 14:09 14:09 14:09 WBC 11.29 H (4.50-10.00) 10*3/uL RBC 4.35 (4.10-5.20) 10*6/uL Hgb 13.2 (12.0-15.0) g/dL Hct 39.0 (37.2-46.3) % MCV 89.7 (80.0-97.0) fL MCH 30.3 (27.0-32.0) pg MCHC 33.8 (32.0-37.0) g/dL Plt Count 376 (140-440) 10*3/uL MPV 9.6 (9.5-12.2) fL Immature Gran % (Auto) 0.2 % Neutrophils % 56.5 % Lymphocytes % 35.3 % Monocytes % 7.2 % Eosinophils % 0.4 % Basophils % 0.4 % Immature Gran # 0.02 (0.00-0.04) 10*3/uL Neutrophils # 6.37 (1.80-7.70) 10*3/uL Lymphocytes # 3.99 (0.90-5.00) 10*3/uL Monocytes # 0.81 (0.20-1.00) 10*3/uL Eosinophils # 0.05 (0.04-0.35) 10*3/uL Basophils # 0.05 (0.00-0.10) 10*3/uL Sodium (137-145) mmol/L Potassium (3.5-5.1) mmol/L Chloride (98-107) mmol/L Carbon Dioxide (22-30) mmol/L Anion Gap mmol/L BUN (7-17) mg/dL Creatinine (0.52-1.04) mg/dL Est GFR (CKD-EPI)AfAm (>60 ml/min/1.73 sqM) Est GFR (CKD-EPI)NonAf (>60 ml/min/1.73 sqM) Glucose (74-99) mg/dL Plasma Lactic Acid Brandon (0.7-2.0) mmol/L Calcium (8.4-10.2) mg/dL Total Bilirubin (0.2-1.3) mg/dL AST (14-36) U/L ALT (4-34) U/L Alkaline Phosphatase (38-126) U/L Total Protein (6.3-8.2) g/dL Albumin (3.5-5.0) g/dL Amylase (30-110) U/L Lipase (23-300) U/L Urine Color Light Red Urine Appearance Turbid H (Clear) Urine pH 5.5 (5.0-8.0) Ur Specific [place] 1.023 (1.001-1.035) Urine Protein 1+ H (Negative) Urine Glucose (UA) Negative (Negative) Urine Ketones Negative (Negative) Urine Blood Large H (Negative) Urine Nitrite Negative (Negative) Urine Bilirubin Negative (Negative) Urine Urobilinogen <2.0 (<2.0) mg/dL Ur Leukocyte Esterase Small H (Negative) Urine RBC >182 H (0-5) /hpf Urine WBC 62 H (0-5) /hpf Ur Squamous Epith Cells 16 H (0-4) /hpf Urine Mucus Occasional H (None) /hpf Urine HCG, Qual Not Detected (Not Detectd) 08/14/24 08/14/24 Range/Units 14:09 14:09 WBC (4.50-10.00) 10*3/uL RBC (4.10-5.20) 10*6/uL Hgb (12.0-15.0) g/dL Hct (37.2-46.3) % MCV (80.0-97.0) fL MCH (27.0-32.0) pg MCHC (32.0-37.0) g/dL Plt Count (140-440) 10*3/uL MPV (9.5-12.2) fL Immature Gran % (Auto) % Neutrophils % % Lymphocytes % % Monocytes % % Eosinophils % % Basophils % % Immature Gran # (0.00-0.04) 10*3/uL Neutrophils # (1.80-7.70) 10*3/uL Lymphocytes # (0.90-5.00) 10*3/uL Monocytes # (0.20-1.00) 10*3/uL Eosinophils # (0.04-0.35) 10*3/uL Basophils # (0.00-0.10) 10*3/uL Sodium 138 (137-145) mmol/L Potassium 4.2 (3.5-5.1) mmol/L Chloride 103 (98-107) mmol/L Carbon Dioxide 25 (22-30) mmol/L Anion Gap 10 mmol/L BUN 14 (7-17) mg/dL Creatinine 0.72 (0.52-1.04) mg/dL Est GFR (CKD-EPI)AfAm >90 (>60 ml/min/1.73 sqM) Est GFR (CKD-EPI)NonAf >90 (>60 ml/min/1.73 sqM) Glucose 102 H (74-99) mg/dL Plasma Lactic Acid Brandon 1.3 (0.7-2.0) mmol/L Calcium 9.3 (8.4-10.2) mg/dL Total Bilirubin 0.7 (0.2-1.3) mg/dL AST 23 (14-36) U/L ALT 14 (4-34) U/L Alkaline Phosphatase 101 (38-126) U/L Total Protein 8.2 (6.3-8.2) g/dL Albumin 4.4 (3.5-5.0) g/dL Amylase 51 (30-110) U/L Lipase 81 (23-300) U/L Urine Color Urine Appearance (Clear) Urine pH (5.0-8.0) Ur Specific [place] (1.001-1.035) Urine Protein (Negative) Urine Glucose (UA) (Negative) Urine Ketones (Negative) Urine Blood (Negative) Urine Nitrite (Negative) Urine Bilirubin (Negative) Urine Urobilinogen (<2.0) mg/dL Ur Leukocyte Esterase (Negative) Urine RBC (0-5) /hpf Urine WBC (0-5) /hpf Ur Squamous Epith Cells (0-4) /hpf Urine Mucus (None) /hpf Urine HCG, Qual (Not Detectd) - Radiology Data Radiology results: report reviewed, image reviewed Disposition Clinical Impression: Kidney stone Disposition: HOME SELF-CARE Condition: Stable Instructions (If sedation given, give patient instructions): Kidney Stones (ED), How to Strain Your Urine (ED) Additional Instructions: Follow-up closely with urology. You may take [place], Zofran and ibuprofen as prescribed for pain control. Take Flomax as prescribed. Return to the ER for new or worsening concerns. Prescriptions: Tamsulosin [Flomax] 0.4 mg PO DAILY #7 cap Ibuprofen [Motrin] 800 mg PO Q6HR #30 tab HYDROcodone/APAP 5-325MG [[place] 5] 1 each PO Q6HR PRN #12 tab PRN Reason: Pain Ondansetron Odt [Zofran Odt] 4 mg PO Q8HR PRN #10 tab PRN Reason: Nausea Is patient prescribed a controlled substance at d/c from ED?: Yes When asked, does pt state using other controlled substances?: No If prescribed controlled substance>3 days was MAPS reviewed?: Prescribed <3 Days If opioid is for acute pain is fill amount 7 days or less?: Yes If Rx opioid, was Start Talking consent form obtained?: Yes Referrals: Clay Stallworth DO [Primary Care Provider] - 1-2 days Michael Alberts MD [STAFF PHYSICIAN] - 1-2 days Time of Disposition: 15:24
[2024-08-14] MEDS: ONDANSETRON 4 MG/2 ML VIAL IVP STA (14:14)
[2024-08-14] MEDS: KETOROLAC 15 MG/ML 1 ML VIAL IVP STA (14:16)
[2024-08-14] MEDS: HYDROmorphone 0.5 MG/0.5 ML SYRINGE IVP STA ×2 (14:18→15:56)
[2024-08-14 14:23] LABS: Basophils # (A) 0.05 10*3/uL (0.00-0.10); Basophils % (A) 0.4 %; Eosinophils # (A) 0.05 10*3/uL (0.04-0.35); Eosinophils % (A) 0.4 %; HGB 13.2 g/dL (12.0-15.0); Lymphocytes # (A) 3.99 10*3/uL (0.90-5.00); Lymphocytes % (A) 35.3 %; MCH 30.3 pg (27.0-32.0); MCHC 33.8 g/dL (32.0-37.0); MCV 89.7 fL (80.0-97.0); Mean Platelet Volume 9.6 fL (9.5-12.2); Monocytes # (A) 0.81 10*3/uL (0.20-1.00); Monocytes % (A) 7.2 %; Neutrophils # (A) 6.37 10*3/uL (1.80-7.70); Neutrophils % (A) 56.5 %; Platelet Count 376 10*3/uL (140-440); RBC 4.35 10*6/uL (4.10-5.20); RDW 12.7 % (11.5-14.5); WBC 11.29 10*3/uL (4.50-10.00)
[2024-08-14] MEDS: LACTATED RINGERS 1,000 ML IV ONE (14:24)
[2024-08-14 14:30] LABS: Appearance,Urine Turbid (Clear); Color,Urine Light Red; PH, Urine 5.5 (5.0-8.0); Protein,Urine 1+ (Negative); Specific Gravity,Urine 1.023 (1.001-1.035)
[2024-08-14 14:31] LABS: Bilirubin,Urine Negative (Negative); Blood,Urine Large (Negative); Glucose,Urine (UA) Negative (Negative); Ketones,Urine Negative (Negative); Leukocyte Esterase,Urine Small (Negative); Mucus,Urine Occasional /hpf; Nitrite,Urine Negative (Negative); RBC,Urine >182 /hpf (0-5); Squamous Epithelial Cell,Urine 16 /hpf (0-4); Urobilinogen,Urine <2.0 mg/dL (<2.0); WBC,Urine 62 /hpf (0-5)
[2024-08-14 14:40] LABS: ALT 14 U/L (4-34); African American GFR (CKD) >90 (>60 ml/min/1.73 sqM); Albumin 4.4 g/dL (3.5-5.0); Amylase 51 U/L (30-110); Anion Gap 10 mmol/L; Blood Urea Nitrogen 14 mg/dL (7-17); Calcium 9.3 mg/dL (8.4-10.2); Carbon Dioxide 25 mmol/L (22-30); Chloride 103 mmol/L (98-107); Glucose 102 mg/dL (74-99); Lipase 81 U/L (23-300); Non-African American GFR(CKD) >90 (>60 ml/min/1.73 sqM); Sodium 138 mmol/L (137-145); Total Bilirubin 0.7 mg/dL (0.2-1.3); Total Protein 8.2 g/dL (6.3-8.2)
[2024-08-14 14:41] LABS: AST 23 U/L (14-36); Alkaline Phosphatase 101 U/L (38-126); Potassium 4.2 mmol/L (3.5-5.1)
--- NOTE | 2024-08-14 15:11 | CT ---
EXAMINATION TYPE: CT abdomen pelvis wo con CT DLP: 646.5 mGycm, Automated exposure control for dose reduction was used. DATE OF EXAM: 08/14/2024 3:02 PM COMPARISON: CT abdomen pelvis 08/08/2019, renal ultrasound 08/18/2019 CLINICAL INDICATION:Female, 44 years old with history of r flank pain; r flank pain and blood in urin e TECHNIQUE: Standard CT of the abdomen and pelvis without IV or oral contrast. Lack of IV or oral co ntrast limits evaluation of solid and hollow organ viscera. Coronal and sagittal reformats were perfo rmed. FINDINGS: LOWER CHEST: Minimal posterior dependent subsegmental atelectasis is noted. Linear scarring and/or at electasis within the lingula. ABDOMEN LIVER: Unremarkable noncontrast appearance GALLBLADDER AND BILE DUCTS: Unremarkable noncontrast appearance PANCREAS: Unremarkable noncontrast appearance SPLEEN: Unremarkable noncontrast appearance ADRENAL GLANDS: Unremarkable noncontrast appearance. KIDNEYS AND URETERS: Mild right hydroureteronephrosis with an obstructing 6 mm calculus at the ureter ovesical junction. Minimal right perinephric and periureteral fat stranding. Additional nonobstructin g right renal 3 moderate calculus. No left renal calculi. PELVIS BLADDER: Underdistended but grossly unremarkable. REPRODUCTIVE: Unremarkable noncontrast appearance ABDOMEN & PELVIS STOMACH AND BOWEL: Unremarkable. No evidence of bowel obstruction. PERITONEUM: No evidence of pneumoperitoneum or free fluid. VASCULATURE: No evidence of aortic aneurysm. A few pelvic phleboliths redemonstrated. MUSCULOSKELETAL: No acute osseous abnormalities LYMPH NODES: No gross evidence for lymphadenopathy. SOFT TISSUE/ABDOMINAL WALL: Unremarkable IMPRESSION: Mild right hydroureteronephrosis with an obstructing 6 mm calculus at the ureterovesical junction. Ad ditional nonobstructive right renal calculus. [facility], , 08/14/2024 3:08 PM
[2024-08-14] MEDS: METOCLOPRAMIDE 5 MG/ML 2 ML VIAL IVP STA (15:20)
[2024-08-14 15:56] VITALS: BP 129/95; PULSE 77
[2024-08-14] MEDS: ONDANSETRON ODT 4 MG TAB PO STA (16:22)
[2024-08-14] MEDS: ACETAMINOPHEN TAB 325 MG TAB PO STA (16:22)
== END 2024-08-14 16:48 | disposition home or self-care (01) ==
LOC: EC 13:24
DX: N13.2 Hydronephrosis with renal and ureteral calculous obstruction (principal); Z88.5 Allergy status to narcotic agent
CPT/HCPCS: 36415; 80053; 82150; 83605; 83690; 85025; 81001; 81025; 87086; 74176; 99284; 96374; 96375; 96376; J2765; J2405; J1885; J1171